=== PATIENT | male | born 1980 | race Caucasian/White ===

== ENCOUNTER 2017-03-23 11:52 | Emergency (ER) | payer OTHER ==
--- NOTE | 2017-03-23 12:36 | ED Physician Documentation ---
History of Present Illness - Stated complaint Stated Complaint: DIARRHEA - Chief complaint Chief Complaint: General - History obtained from History obtained from: Patient - History of Present Illness Timing: Other (Stomach cramps, diarrhea, nausea without vomiting and chills since last night. A coworker had similar symptoms. No recent travel or antibiotics.) Review of Systems Constitutional: reports: Chills, Fatigue. denies: Fever GI: reports: Abdominal Pain, Nausea, Diarrhea. denies: Vomiting, Bloody / black stool PD PAST MEDICAL HISTORY - Past Surgical History General: Appendectomy - Present Medications Home Medications: Ambulatory Orders Medication Instructions Recorded Confirmed Dicyclomine HCl 20 mg PO QID PRN #20 tablet 03/23/17 Loperamide [Imodium] 2 mg PO QID PRN #10 capsule 03/23/17 Ondansetron HCl [Zofran] 4 mg PO Q6H PRN #10 tablet 03/23/17 - Allergies Allergies/Adverse Reactions: Allergies Allergy/AdvReac Type Severity Reaction Status Date / Time No Known Drug Allergies Allergy Verified 03/23/17 12:00 - Social History Does the pt smoke?: No Smoking Status: Former smoker Does the pt drink ETOH?: Yes Does the pt have substance abuse?: No PD ED PE NORMAL - Vitals Vital signs reviewed: Yes - General General: Alert and oriented X 3, No acute distress - Abdomen Abdomen: Soft, Non tender - Derm Derm: No rash - Neuro Neuro: Alert and oriented X 3, Normal speech Results - Vitals Vitals: Vital Signs - 24 hr 03/23/17 11:57 Temperature 36.2 C L Heart Rate 77 Respiratory 18 Rate Blood Pressure 136/84 H O2 Saturation 96 Oxygen O2 Source Room air PD MEDICAL DECISION MAKING - ED course ED course: It took a while but he produced actually a mostly formed stool here. Low suspicion for bacterial enteritis could be gastroenteritis though. Stool culture pending. Departure - Departure Disposition: Home, Self Care Clinical Impression: Diarrhea Qualifiers: Diarrhea type: presumed infectious Qualified Code(s): R19.7 - Diarrhea, unspecified Condition: Good Record reviewed to determine appropriate education?: Yes Instructions: ED Gastroenteritis Report Pend Prescriptions: Dicyclomine HCl 20 mg PO QID PRN #20 tablet PRN Reason: Abdominal Cramps Loperamide [Imodium] 2 mg PO QID PRN #10 capsule PRN Reason: Diarrhea Ondansetron HCl [Zofran] 4 mg PO Q6H PRN #10 tablet PRN Reason: Nausea / Vomiting Comments: We will call if your stool cultures are positive. Return if worse. Forms: Activity restrictions
[2017-03-23 14:07] VITALS: BP 127/79
== END 2017-03-23 14:15 | disposition home or self-care (01) ==
LOC: ED 11:52
DX: R19.7 Diarrhea, unspecified (principal); R11.0 Nausea; R10.84 Generalized abdominal pain; Z87.891 Personal history of nicotine dependence
CPT/HCPCS: 87045; 87046; 99283